=== PATIENT | female | born 1990 | race Two or more races ===

== ENCOUNTER 2016-09-13 12:46 | Emergency (ER) | payer OTHER ==
[2016-09-13 13:14] LABS: URINE BILIRUBIN 2+ (NEGATIVE); URINE BLOOD TRACE (NEGATIVE); URINE GLUCOSE (UA) NEGATIVE (NEGATIVE); URINE LEUKOCYTE ESTERASE NEGATIVE (NEGATIVE); URINE NITRITE POSITIVE (NEGATIVE); URINE PROTEIN NEGATIVE (NEGATIVE); URINE UROBILINOGEN 4 mg/dL (0-1 mg/dl)
[2016-09-13 13:15] LABS: URINE APPEARANCE CLEAR; URINE COLOR BROWN
[2016-09-13 13:16] LABS: HCG,QUALITATIVE URINE NEGATIVE
[2016-09-13 13:32] LABS: URINE BACTERIA 1+
== END 2016-09-13 15:01 | disposition home or self-care (01) ==
LOC: ED 12:46
DX: N39.0 Urinary tract infection, site not specified (principal)